=== PATIENT | male | born 1945 | race Caucasian/White ===

== ENCOUNTER 2016-12-06 13:23 | Observation (INO) | payer MEDICARE, OTHER ==
[2016-12-06] VITALS (12 sets, daily range): BP systolic 101–122; BP diastolic 58–86; PULSE 66–70; RESP 16–24; O2SAT 93–98
[~2016-12-06] VITALS: Ht 185.4 cm; Wt 98.8 kg
--- NOTE | 2016-12-06 14:26 | ED.REPORT ---
HPI-Dyspnea / Wheezing Date of Service Dec 06, 2016 ED Provider: Nursing Notes Stated Complaint: SHORT OF BREATH Chief Complaint: Respiratory Distress Allergies: Coded Allergies: No Known Allergies (Unverified , 12/06/16) General Time Seen by MD: 14:26 Physical Exam Initial Vital Signs Vital Signs (First) Date Time Temp Pulse Resp B/P Pulse Ox O2 Delivery O2 Flow Rate FiO2 12/06/16 13:44 37.2 69 23 110/75 96 Room Air Discharge & Departure Referrals: Eric Griffin MD (PCP) Nilam Quintana MD Dec 06, 2016 14:26
--- NOTE | 2016-12-06 14:39 | DRSVH ---
PROCEDURE: X-RAY CHEST, TWO VIEWS ([id number]) INDICATIONS: dyspnea TECHNIQUE: 2 views of the chest were acquired. COMPARISON: [facility], CHEST 2 VIEW, 07/12/2015, 11:51. FINDINGS: Surgical changes and devices: None. Lungs and pleura: No pleural effusions or pneumothorax. Lungs are abnormal with chronic quite sever e fibrotic change in underlying chronic lung disease with also bullous emphysema at the left upper lo be in a pattern previously present, without evidence of superimposed pneumothorax. Mediastinum: Mediastinal contours are normal. Heart size is normal. Bones and chest wall: No suspicious bony abnormalities. Soft tissues appear unremarkable. IMPRESSION: Left upper lobe apical bullous lung disease superimposed on quite severe chronic lung dis ease and interstitial prominence. With reference to the comparison study from 07/12/15 little if any c hange is identified. There is no current suspicion for superimposed pneumothorax in addition to the bullous emphysema noted at the left upper lobe. Dictated by: Jordy Bustillo M.D. on 12/06/2016 at 14:35 Approved by: Jordy Bustillo M.D. on 12/06/2016 at 14:37
--- NOTE | 2016-12-06 15:08 | ED.REPORT ---
HPI-Dyspnea / Wheezing Date of Service Dec 06, 2016 ED Provider: Juan Jose Alcantar DO Nursing Notes Stated Complaint: SHORT OF BREATH Chief Complaint: Respiratory Distress Allergies: Coded Allergies: No Known Allergies (Unverified , 12/06/16) General Time Seen by MD: 14:50 Physical Exam Initial Vital Signs Vital Signs (First) Date Time Temp Pulse Resp B/P Pulse Ox O2 Delivery O2 Flow Rate FiO2 12/06/16 13:44 37.2 69 23 110/75 96 Room Air Discharge & Departure Referrals: Eric Griffin MD (PCP) Juan Jose Alcantar DO Dec 06, 2016 15:08
--- NOTE | 2016-12-06 15:24 | ED.REPORT ---
HPI-Dyspnea / Wheezing Date of Service Dec 06, 2016 ED Provider: Juan Jose Alcantar DO Mr. Chaudhary is a very pleasant 71-year-old male with a history of sarcoidosis, presents to the ED with dyspnea and left-sided rib pain. Patient noted that the pain started 3 days ago and it is localized to the left side, deep under his rib. Pain is described as sharp in nature worse with breathing. The pain came on suddenly and has worsened in the last few days. Patient denies any fall or trauma. Associated symptoms of increased cough, shortness of breath, and mucus production. Patient denies fevers chills, chest pain, dizziness, changes in urinary or bowel symptoms. Nursing Notes Stated Complaint: SHORT OF BREATH Chief Complaint: Respiratory Distress Allergies: Coded Allergies: No Known Allergies (Unverified , 12/06/16) Scheduled Aspirin Chew (Aspirin Chew) 81 Mg Chew 81 MG PO DAILY Atenolol (Atenolol) 50 Mg Tablet 50 MG PO Q2DAY Levofloxacin (Levaquin) 500 Mg Tablet 500 MG PO Q24H Prednisone (PredniSONE) 5 Mg Tab 5 MG PO DAILY Simvastatin (Simvastatin) 40 Mg Tablet 40 MG PO HS General Time Seen by MD: 15:00 Chief Complaint Shortness of breath Hx Obtained From: Patient Arrived By: Helicopter Sudden in Onset?: Yes Onset Occurred: 3 days ago Symptom Duration: Constant Radiation: : Does not radiate Severity: Current: Pain level 3 out of 10 Associated with: Reports: Cough, Denies: Fever Pertinent Negative: Pt denies other symptoms Risk Factors PERC Rule Age 50 or over, Recent trauma or surgery Past Medical History Past Medical History Sarcoidosis Pseudomonas pneumonia Past Surgical History Umbilical hernia 5 weeks ago Skin cancer removal Review of Systems Basic Review of Systems Eyes: Vision NL, No discharge : No dysuria, No frequency Hematologic: No bleeding, No bruising Neurologic: NL mental status, No weakness, No numbness Psychiatric: Normal thought content Constitutional: Denies: Chills, Fever Respiratory: Reports: Pleuritic pain, Prod cough, clear, Shortness of breath, Wheezing Cardiovascular: Denies: Chest pain Complete sys rev & neg: except as marked. Physical Exam Initial Vital Signs Vital Signs (First) Date Time Temp Pulse Resp B/P Pulse Ox O2 Delivery O2 Flow Rate FiO2 12/06/16 13:44 37.2 69 23 110/75 96 Room Air 12/06/16 17:51 2 Head / Eyes: Atraumatic, Normocephalic, PERRL ENT: Mucous membranes moist, Conjunctiva normal, No scleral icterus Lymphatic: No lymphadenopathy Extremities: Vascular intact, Neuro intact, No swelling, No tenderness Skin: Warm, Dry, No cyanosis Neurologic: Alert, Oriented, Nonfocal Psychiatric: Mood/affect normal, Behavior normal, Normal thought content Respiratory / Chest: No crepitus Wheezing / Retractions: Positive: Wheezing inspiratory (wheezes were heard in all lung reagan anterior and posteriorly.) Abdomen: Soft, No guarding, No rebound, BS normoactive, No distention, No palpable mass, No pulsatile mass Tenderness/Guarding/Rebound: Positive: Tender LUQ... (Mild) Interpretation & Diagnostics Lab Results Interpretation Result Diagram: 12/07/16 04512/07/16 0450 Test 12/06/16 15:48 12/06/16 16:20 12/06/16 17:43 Urine Color Yellow (YELLOW) Urine Appearance Clear (CLEAR,HAZY) Urine pH 7.0 (5.0-8.0) Urine Specific [place] 1.010 (1.003-1.035) Urine Protein Negativemg/dL (NEG,TRACE) Urine Glucose (UA) Negativemg/dL (NEGATIVE) Urine Ketones Negativemg/dL (NEGATIVE) Urine Occult Blood Negative (NEGATIVE) Urine Nitrite Negative (NEGATIVE) Urine Bilirubin Negative (NEGATIVE) Urine Urobilinogen Normalmg/dL (NORMAL) Urine Leukocyte Esterase Negative (NEGATIVE) Urine RBC 0-2/hpf (0-2) Urine WBC 0-5/hpf (0-5) Urine Epithelial Cells Few/hpf (NONE-MOD) Urine Crystals None seen (NONE SEEN) Urine Bacteria Few/hpf (NONE-FEW) Urine Hyaline Casts None/lpf (NONE) Urine Granular Casts None seen (NONE SEEN) Urine Waxy Casts None seen (NONE SEEN) Urine Red Blood Cell Casts None seen (NONE SEEN) Urine White Blood Cell Casts None seen (NONE SEEN) Urine Mucus None seen (None Seen) Urine Trichomonas None seen (NONE SEEN) Urine Yeast None (NONE SEEN) Urinalysis Comment None Urine Culture Reflexed Not indicated D-Dimer 0.90mg/L FEU (<0.50) Pro-B-Type Natriuretic Peptide 112.7pg/mL (0-376) Hold Kaur Top Tube Received (Received) Hold Urine Received (Received) ECG Interpretation ECG Interpretation: Sinus rhythm at a rate of 68 bpm Atrial premature complex Left bundle branch block Time: 13:48 X-Ray Chest Interpretation Chest Xray Interpretation: IMPRESSION: 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 With reference to the comparison study from 07/12/15 little if any change is identified. There is no current suspicion for superimposed pneumothorax in addition to the bullous emphysema noted at the left upper lobe. View: AP & lat Interpretation / Wet Read by: Interpret - Radiologist Reviewed Previous Films: No change Re-Eval/Medical Decision Med Decision/Clinical Course Jet is a 71-year-old male with a history of sarcoidosis. He presents with left upper quadrant pain worse with inspiration. He has had increased cough, shortness of breath, and mucus production. Patient was transferred here due to concern of pneumothorax with a 30% collapsed lung, left upper lobe. On physical exam, I was able to appreciate wheezing and breath sounds in all lung reagan anteriorly and posteriorly. Chest x-ray showed no pneumothorax superimposed on his existing emphysema and lung disease. Patient is over the age of 50 with a recent surgical history. Labs revealed an elevated d-dimer. I ordered a chest CT to rule out pulmonary embolism. Patient has a elevated pro calcitonin with a left shift, without an elevated white blood cell count. With a history of recurrent Pseudomonas pneumonia we'll treat him with Levaquin. Patient was also oxygenating at 92% falling at rest. Discharge & Departure Impression: Primary Impression: Pneumonia Pneumonia type: due to unspecified organism Laterality: left Lung location : lower lobe of lung Qualified Code: J18.1 - Lobar pneumonia, unspecified organism Additional Impression: Sarcoidosis of lung Disposition: ADMITTED TO HOSPITAL Discharge Condition All VS Reviewed: Yes Condition: Stable Additional Instructions: Today we did a thorough workup and determined that your deep left-sided pain is not due to pneumothorax or pulmonary embolism. However today labs do show that you have an elevated pro-calcitonin which is sign of bacterial infection. With your history of pseudomonas we would like to put you on Levaquin. Your oxygen is dropping while laying in bed we would like to hold you overnight for observation. Referrals: Eric Griffin MD (PCP) Attending Statement I saw and evaluated this pt with Dr. Briceño and agree with the documentation above Leonila Briceño DO Dec 06, 2016 15:24 AndJuan Jose pichardo DO Dec 09, 2016 21:16 Estimat Glomerular Filtration Rate 0mL/min (>59) Glucose Level 108mg/dL (60-99) Calcium Level 9.3mg/dL (8.5-10.1) Total Bilirubin 0.8mg/dL (0.0-1.2) Aspartate Amino Transf (AST/SGOT) 24U/L (0-50) Alanine Aminotransferase (ALT/SGPT) 19U/L (0-44) Alkaline Phosphatase 67U/L (25-160) Troponin T < 0.010ug/L (0.0-0.011) Pro-B-Type Natriuretic Peptide 112.7pg/mL (0-376) Total Protein 6.9g/dL (6.4-8.4) Albumin 3.8g/dL (3.4-5.0) Procalcitonin 0.12ng/mL (0.00-0.08) Hold Kaur Top Tube Received (Received) Hold Urine Received (Received) ECG Interpretation ECG Interpretation: Sinus rhythm at a rate of 68 bpm Atrial premature complex Left bundle branch block Time: 13:48 X-Ray Chest Interpretation Chest Xray Interpretation: IMPRESSION: 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 With reference to the comparison study from 07/12/15 little if any change is identified. There is no current suspicion for superimposed pneumothorax in addition to the bullous emphysema noted at the left upper lobe. View: AP & lat Interpretation / Wet Read by: Interpret - Radiologist Reviewed Previous Films: No change Re-Eval/Medical Decision Med Decision/Clinical Course Jet is a 71-year-old male with a history of sarcoidosis. He presents with left upper quadrant pain worse with inspiration. He has had increased cough, shortness of breath, and mucus production. Patient was transferred here due to concern of pneumothorax with a 30% collapsed lung, left upper lobe. On physical exam, I was able to appreciate wheezing and breath sounds in all lung reagan anteriorly and posteriorly. Chest x-ray showed no pneumothorax superimposed on his existing emphysema and lung disease. Patient is over the age of 51 with a recent surgical history. Labs revealed an elevated d-dimer. I ordered a chest CT to rule out pulmonary embolism. Patient has a elevated pro calcitonin with a left shift, without an elevated white blood cell count. With a history of recurrent Pseudomonas pneumonia we'll treat him with Levaquin. Patient was also oxygenating at 92% falling at rest. Discharge & Departure Impression: Primary Impression: Pneumonia Pneumonia type: due to unspecified organism Laterality: left Lung location : lower lobe of lung Qualified Code: J18.1 - Lobar pneumonia, unspecified organism Additional Impression: Sarcoidosis of lung Disposition: ADMITTED TO HOSPITAL Discharge Condition All VS Reviewed: Yes Condition: Stable Additional Instructions: Today we did a thorough workup and determined that your deep left-sided pain is not due to pneumothorax or pulmonary embolism. However today labs do show that you have an elevated pro-calcitonin which is sign of bacterial infection. With your history of pseudomonas we would like to put you on Levaquin. Your oxygen is dropping while laying in bed we would like to hold you overnight for observation. Referrals: Eric Griffin MD (PCP) Leonila Briceño DO Dec 06, 2016 15:24
[2016-12-06 16:32] LABS: BASOPHILS % (AUTO) 0.1 % (0-3); EOSINOPHILS % (AUTO) 1.5 % (0-5); Mean Corpuscular Hemoglobin 31.2 pg (27.0-35.0); Mean Corpuscular Volume 92.2 fL (81-100); NEUTROPHILS % (AUTO) 82.5 % (40-74); Platelet Count 184 bil/L (150-400)
[2016-12-06 16:47] LABS: APPEARANCE,URINE CLEAR (CLEAR,HAZY); COLOR,URINE YELLOW (YELLOW); OCCULT BLOOD,URINE NEGATIVE (NEGATIVE); UROBILINOGEN,URINE NORMAL (NORMAL)
[2016-12-06 17:05] LABS: TROPONIN T < 0.010 ug/L (0.0-0.011)
[2016-12-06] MEDS ORDERED: HYDROmorphone 1 mg/mL Inj IVPUSH ONE (17:20)
--- NOTE | 2016-12-06 19:27 | DRSVH ---
PROCEDURE: CT ANGIO CHEST PULMONARY EMBOLISM ([id number]) INDICATIONS: shortness of breath TECHNIQUE: After the administration of intravenous contrast, 2 mm thick sections acquired from the pulmonary api salena to the posterior costophrenic angles. 3-dimensional maximum intensity projection (MIP) coronal a nd sagittal reformats were then acquired through the thorax. For radiation dose reduction, the follo wing was used: automated exposure control, adjustment of mA and/or kV according to patient size. COMPARISON: [facility], CT, CT LEMUS, 09/22/2014, 14:10. [facility], CT, THORAX WITH CONTRAST, 07/23/2012, 12:34. FINDINGS: Image quality: Excellent. Pulmonary arteries: Pulmonary arteries are normal in size, and demonstrate no intraluminal filling d efects to suggest central pulmonary embolism. Lungs and pleura: Significant emphysematous change is with large bulla particularly in the left apex are present. There are areas of patchy and nodular consolidative opacity identified within the apices , which are unchanged. In addition, patchy areas of opacity are also noted within the bases, also unc hanged. Areas of mild bibasilar honeycombing are also present. Mediastinum: Heart size is normal, without pericardial effusion. No mediastinal or hilar adenopathy . The ascendnig thoracic aorta measures 43 mm, unchanged. Esophagus is normal in caliber, without hia andres hernia. Bones and chest wall: No suspicious bony lesions. Ribs and thoracic spine appear intact throughout. Thyroid gland is unremarkable. No axillary or supraclavicular adenopathy. Mid thoracic compressio n deformity is unchanged. Abdomen: Partially visualized renal cysts are noted. Otherwise, visualized upper abdominal solid org ans appear normal in the early arterial phase of enhancement. IMPRESSION: 1. No visualized pulmonary embolism. 2. Multiple areas of nodular, patchy consolidative opacities identified within the lungs, unchanged c ompared to prior exam. There is a likely reflective of areas of scarring. Prominent emphysematous yash nges are also noted. 3. Unchanged a ascending thoracic aortic aneurysmal dilation. Dictated by: Tyesha Garcia M.D. on 12/06/2016 at 19:17 Approved by: Tyesha Garcia M.D. on 12/06/2016 at 19:25
[2016-12-06] MEDS ORDERED: Alum-Mag Hydrox-Simeth 30 mL Suspension PO PRN (21:35)
[2016-12-06] MEDS ORDERED: Polyethylene Glycol (PEG) 17 Gm Powder PO PRN (21:35)
[2016-12-06] MEDS ORDERED: Ondansetron 2 mg/mL 2 mL Inj IVPUSH PRN (21:35)
[2016-12-06] MEDS ORDERED: levoFLOXacin 500 mg Tablet PO SCH (21:38)
[2016-12-06] MEDS ORDERED: ATEN50TA PO (22:24)
[2016-12-06] MEDS ORDERED: PRD5T PO (22:24)
[2016-12-06] MEDS ORDERED: SIMV40TA5 PO (22:24)
--- NOTE | 2016-12-06 22:30 | PCM.HPMED ---
Subjective Date of Service Dec 06, 2016 Primary Provider: Admitting Physician: Becky Solomon DO Primary Care Physician: Eric Griffin MD Attending Physician: Becky Solomon DO Chief Complaint: Dyspnea, Cough History of Present Illness: Patient is a 71 y/o male with history of Pulmonary Sarcoidosis, HTN, hyperlipidemia, and pseudomonas pneumonia who presents after three days of sharp left sided pleuritic pain that is worse with deep breaths. Patient states this pain started gradually and got worse today. Patient reports increased cough from his baseline with associated yellow sputum. Denies any fever/chills, SLATER, CP, ABD pain, N/V/D, or urinary symptoms. He was seen by his PCP today on [place] who did a CXR. PCP was concerned for possible pneumothorax due to left sided lung markings on imaging. CXR was sent to and they too were concerned for pneumothorax, to which the patient was sent here. Patient has had pulmonary sarcoidosis for roughly 10 years and is currently stage 4. He is currently on Prednisone 5mg PO daily. In the ED, CXR was performed showing left apical blebs and compared to a study from 07/12/15 which showed no significant changes and r/o pneumothorax. Patient placed on 2L NC O2 and given 1mg Dilaudid. Review of Systems: ROS reviewed and otherwise negative unless noted above. Allergies Coded Allergies: No Known Allergies (Unverified , 12/06/16) Home Medications Atenolol 50mg tablet BID Prednisone 5mg tablet daily Simvistatin 40mg PO HS PMH HTN Hyperlipidemia Sarcoidosis - Stage 4 H/o Pseudomonas Pneumonia Facial Skin Cancer of unknown type Surgical History Umbilical Hernia 5 weeks ago w/o complications Skin Cancer removal Family History CAD, HTN in Father HTN in Mother Social History Hx Alcohol Use: No Hx Substance Use: No Smoking Status: Never Smoker Living Arrangement: with Family Exam Vital Signs Vital Sign - Last Date Time Temp Pulse Resp B/P Pulse Ox O2 Delivery O2 Flow Rate FiO2 12/06/16 22:00 36.5 66 20 119/76 98 Nasal Cannula 2.00 Exam Constitutional: Awake, Alert and oriented x4, no acute distress Head: Normocephalic and Atraumatic Eyes: Pupils equal round and reactive to light, no scleral icterus, EOMI Mouth: moist mucous membranes, no posterior oropharynx erythema Heart: regular rate and rhythm. no peripheral edema, no peripheral edema Lungs: Diffuse wheeze throughout all lung reagan, Diminshed breath sounds in the left apex, no rales or rhonchi ABD: soft, nontender, bowel sounds present throughout, well healed umbilical surgical scar Musculoskeletal: moves all four extremities appropriately Skin: warm, dry, no rash Neuro: CN II-XII intact, no focal deficits. Psych: appropriate mood and affect. Lab and Diagnostics Labs Item Value Date Time Red Blood Count 4.74 mil/mm3 12/06/16 1620 Mean Corpuscular Volume 92.2 fL 12/06/16 1620 Mean Corpuscular Hemoglobin 31.2 pg 12/06/16 1620 Mean Corpuscular Hemoglobin Concent 33.9 % 12/06/16 1620 Red Cell Distribution Width 13.4 % 12/06/16 1620 Neutrophils (%) (Auto) 82.5 % H 12/06/16 1620 Lymphocytes (%) (Auto) 3.8 % L 12/06/16 1620 Eosinophils (%) (Auto) 1.5 % 12/06/16 1620 Monocytes (%) (Auto) 12.0 % 12/06/16 1620 Basophils (%) (Auto) 0.1 % 12/06/16 1620 Estimat Glomerular Filtration Rate 0 mL/min 12/06/16 1620 Calcium Level 9.3 mg/dL 12/06/16 1620 Total Bilirubin 0.8 mg/dL 12/06/16 1620 Aspartate Amino Transf (AST/SGOT) 24 U/L 12/06/16 1620 Alanine Aminotransferase (ALT/SGPT) 19 U/L 12/06/16 1620 Alkaline Phosphatase 67 U/L 12/06/16 1620 Troponin T < 0.010 ug/L 12/06/16 1620 Pro-B-Type Natriuretic Peptide 112.7 pg/mL 12/06/16 1620 Total Protein 6.9 g/dL 12/06/16 1620 Albumin 3.8 g/dL 12/06/16 1620 Procalcitonin 0.12 ng/mL H 12/06/16 1620 D-Dimer 0.90 mg/L FEU H 12/06/16 1620 Result Diagram: 12/06/16 1620 12/06/16 1620 X-Rays, CTs and MRIs PROCEDURE: X-RAY CHEST, TWO VIEWS IMPRESSION: 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 With reference to the comparison study from 07/12/15 little if any change is identified. There is no current suspicion for superimposed pneumothorax in addition to the bullous emphysema noted at the left upper lobe. Dictated by: Jordy Bustillo M.D. on 12/06/2016 at 14:35 PROCEDURE: CT ANGIO CHEST PULMONARY EMBOLISM IMPRESSION: 1. No visualized pulmonary embolism. 2. Multiple areas of nodular, patchy consolidative opacities identified within the lungs, unchanged compared to prior exam. There is a likely reflective of areas of scarring. Prominent emphysematous changes are also noted. 3. Unchanged a ascending thoracic aortic aneurysmal dilation. Dictated by: Tyesha Garcia M.D. on 12/06/2016 at 19:17 12-lead ECG Sinus Rhythm HR 68 Assessment & Plan Patient is a 71 y/o male with history of Pulmonary Sarcoidosis, HTN, hyperlipidemia, and pseudomonas pneumonia who presents after three days of sharp left sided pleuritic pain that is worse with deep breaths and productive cough. - Acute Community Acquired Pneumonia, POA, Active, Stable - Patient with h/o Pulmonary Sarcoidosis and at risk for communicable lung infections presents with increased productive cough, elevated procalcitonin, and CT evidence of pneumonia. - Start Levaquin PO x5 days. - Monitor oxygen levels - AM CBC, CMP, and procalcitonin - Acute Elevated D-dimer, POA, Active, Stable - Patient's D-dimer 0.9 on admission, negative PE study and no evidence of DVT, likely related to chronic inflammatory state of Sarcoidosis - Monitor clinically - History of Sarcoidosis, Chronic, POA, Stable - Continue home dose prednisone -History of HTN, Chronic, Stable - Continue home dose of Atenolol -History of Hyperlipidemia, Chronic, Stable - Continue home dose statin Patient is limited interventions, CPR only, no intubation Due to patient's history of Sarcoidosis and risk for pneumothorax, patient is admitted under observation status with an expected length of stay less than 2 midnights. Pain Evaluation: Adequate Pain Control GI Prophylaxis: H2 christy VTE Prophylaxis Indicated: Meets Criteria for Anticoag Therapy VTE Prophylaxis: Sub-Q Heparin (Unfractionated) Resuscitation Status: Limited Interventions Limited Interventions: Compressions Attending Statement The patient was seen and examined together with house staff on 12/06/2016 and I agree with the history, exam and plan as outlined in the note above. Aidan Duong DO Dec 06, 2016 22:30 Becky Solomon DO Dec 07, 2016 04:21
[2016-12-06] MEDS ORDERED: Albuterol-Ipratropium 3 mL Inhalation Solution NEB PRN (22:35)
--- NOTE | 2016-12-06 23:56 | NUR ---
Admit Note Pt. arrived on the floor at 2150. A&Ox3. Pt. on 2 liters of oxygen via nc upon arrival from ED. Pt's peripheral IV intact and patent. Will continue to monitor.
[2016-12-07] MEDS: Heparin 5,000 Unit/mL Inj SUBQ SCH ×2 (00:52→09:17)
[2016-12-07 01:20] VITALS: BP 96/59; PULSE 71; RESP 20; O2SAT 97
[2016-12-07 05:37] LABS: BASOPHILS % (AUTO) 0.1 % (0-3); MONOCYTES % (AUTO) 10.9 % (4-12); Mean Corpuscular Hemoglobin 31.4 pg (27.0-35.0); Mean Corpuscular Volume 93.8 fL (81-100); NEUTROPHILS % (AUTO) 79.8 % (40-74); Platelet Count 161 bil/L (150-400)
[2016-12-07 06:10] VITALS: BP 111/73; PULSE 72; RESP 20; O2SAT 98
[2016-12-07] MEDS ORDERED: predniSONE 5 mg Tablet PO SCH (08:30)
[2016-12-07 12:30] VITALS: BP 107/70; PULSE 74; RESP 20; O2SAT 93
--- NOTE | 2016-12-07 13:23 | PCM.PNMED ---
Subjective Date of Service Dec 07, 2016 Subjective Pt denies any significant SOB. Exam Vital Signs Vital Sign - Last Date Time Temp Pulse Resp B/P Pulse Ox O2 Delivery O2 Flow Rate FiO2 12/07/16 12:30 36.7 74 20 107/70 93 Nasal Cannula 12/07/16 06:10 2.00 Intake and Output 12/06/16 12/06/16 12/07/16 Cumulative From/Thru 15:00 23:00 07:00 12/06/16 13:44 - 12/07/16 06:45 Intake Total 700 ml 700 ml Output Total 400 ml 400 ml Balance 300 ml 300 ml Intake Oral 700 ml 700 ml Output Urine Total 400 ml 400 ml # Voids 1 1 # Bowel Movements 0 0 Exam Constitutional: Awake, Alert and oriented x4, no acute distress Head: Normocephalic and Atraumatic Eyes: Pupils equal round and reactive to light, no scleral icterus, EOMI Mouth: moist mucous membranes, no posterior oropharynx erythema Heart: regular rate and rhythm. no peripheral edema, no peripheral edema Lungs: Diffuse wheeze throughout all lung reagan, Diminished breath sounds in the left apex, no rales or rhonchi ABD: soft, nontender, bowel sounds present throughout, well healed umbilical surgical scar Musculoskeletal: moves all four extremities appropriately Skin: warm, dry, no rash Neuro: CN II-XII intact, no focal deficits. Psych: appropriate mood and affect. 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 With reference to the comparison study from 07/12/15 little if any change is identified. There is no current suspicion for superimposed pneumothorax in addition to the bullous emphysema noted at the left upper lobe. Dictated by: Jordy Bustillo M.D. on 12/06/2016 at 14:35 PROCEDURE: CT ANGIO CHEST PULMONARY EMBOLISM IMPRESSION: 1. No visualized pulmonary embolism. 2. Multiple areas of nodular, patchy consolidative opacities identified within the lungs, unchanged compared to prior exam. There is a likely reflective of areas of scarring. Prominent emphysematous changes are also noted. 3. Unchanged a ascending thoracic aortic aneurysmal dilation. Dictated by: Tyesha Garcia M.D. on 12/06/2016 at 19:17 12-lead ECG Sinus Rhythm HR 68 Assessment & Plan Patient is a 71 y/o male with history of Pulmonary Sarcoidosis, HTN, hyperlipidemia, and pseudomonas pneumonia who presents after three days of sharp left sided pleuritic pain that is worse with deep breaths and productive cough. Initially sent in for suspicion of Pneumothorax on CXR per PCP. Our Repeat CXR and CTA Chest show KIANA Emphysema, low suspicion for PTX. Acute Community Acquired Pneumonia, POA, Active - Patient with h/o Pulmonary Sarcoidosis and at risk for communicable lung infections presents with increased productive cough, elevated procalcitonin, and CT evidence of pneumonia. - Afebrile, No leukocytosis. - Continue Levaquin PO x7 days to end December 12. - Monitor oxygen levels. - procalcitonin was elevated. KIANA emphysematous change, chronic, stable. Initially sent in for suspicion of Pneumothorax on CXR per PCP. Our Repeat CXR and CTA Chest show KIANA Emphysema, low suspicion for PTX. Discussed case with On-Call radiologist who reviewed images and agreed no significant evidence to suggest Pneumothorax. - Will need to get repeat Chest X-Ray as outpatient to compare to make sure abnormal finding are stable. Chronic COPD- poa, active. Not likely acute exacerbation. Tx for PNA above. CTA- Significant emphysematous change is with large bulla particularly in the left apex are present Follow up with PCP in 1 week, consider pulmonary referral. Acute Elevated D-dimer, POA, Stable - Patient's D-dimer 0.9 on admission, negative PE study and no evidence of DVT, likely related to chronic inflammatory state of Sarcoidosis History of Sarcoidosis, Chronic, POA, Stable - Continue home dose prednisone History of HTN, Chronic, Stable - Continue home dose of Atenolol History of Hyperlipidemia, Chronic, Stable - Continue home dose statin Patient is limited interventions, CPR only, no intubation Dispo- discharge home. - Continue Levaquin for total 7 days to end December 12. - Continue home dose prednisone - Follow up with primary doctor in 1 week, consider pulmonary referral. - Will need to get repeat Chest X-Ray as outpatient to compare to make sure abnormal finding are stable. Blood Cultures were obtained, your doctor can request records as results will not be available for 2-3 days. GI Prophylaxis: H2 christy VTE Prophylaxis: Sub-Q Heparin (Unfractionated) VTE Mechanical Devices: Intermittant Pneumatic CD Resuscitation Status: Limited Interventions Limited Interventions: Compressions Eliceo Berumen MD Dec 07, 2016 13:23
--- NOTE | 2016-12-07 13:38 | PCM.DC.MED ---
Discharge Summary Date of Service Dec 07, 2016 Dates of Hospitalization Date of Hospital Admission Dec 06, 2016 at 21:26 Date of Discharge: Dec 07, 2016 Providers: Admitting Physician: Becky Solomon DO Primary Care Physician: Eric Griffin MD Attending Physician: Eliceo Berumen MD Diagnosis at Time of Discharge Diagnosis at Time of Discharge Acute Community Acquired Pneumonia, POA, Active KIANA emphysematous change, chronic, stable. Chronic COPD- poa, active. 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 With reference to the comparison study from 07/12/15 little if any change is identified. There is no current suspicion for superimposed pneumothorax in addition to the bullous emphysema noted at the left upper lobe. Dictated by: Jordy Bustillo M.D. on 12/06/2016 at 14:35 PROCEDURE: CT ANGIO CHEST PULMONARY EMBOLISM IMPRESSION: 1. No visualized pulmonary embolism. 2. Multiple areas of nodular, patchy consolidative opacities identified within the lungs, unchanged compared to prior exam. There is a likely reflective of areas of scarring. Prominent emphysematous changes are also noted. 3. Unchanged a ascending thoracic aortic aneurysmal dilation. Dictated by: Tyesha Garcia M.D. on 12/06/2016 at 19:17 ECG 12 Lead Sinus Rhythm HR 68 Brief History Per HPI on 12/06/[address] Duong Patient is a 71 y/o male with history of Pulmonary Sarcoidosis, HTN, hyperlipidemia, and pseudomonas pneumonia who presents after three days of sharp left sided pleuritic pain that is worse with deep breaths. Patient states this pain started gradually and got worse today. Patient reports increased cough from his baseline with associated yellow sputum. Denies any fever/chills, SLATER, CP, ABD pain, N/V/D, or urinary symptoms. He was seen by his PCP today on [place] who did a CXR. PCP was concerned for possible pneumothorax due to left sided lung markings on imaging. CXR was sent to and they too were concerned for pneumothorax, to which the patient was sent here. Patient has had pulmonary sarcoidosis for roughly 10 years and is currently stage 4. He is currently on Prednisone 5mg PO daily. In the ED, CXR was performed showing left apical blebs and compared to a study from 07/12/15 which showed no significant changes and r/o pneumothorax. Patient placed on 2L NC O2 and given 1mg Dilaudid. Hospital Course Patient is a 71 y/o male with history of Pulmonary Sarcoidosis, HTN, hyperlipidemia, and pseudomonas pneumonia who presents after three days of sharp left sided pleuritic pain that is worse with deep breaths and productive cough. Initially sent in for suspicion of Pneumothorax on CXR per PCP. Our Repeat CXR and CTA Chest show KIANA Emphysema, low suspicion for PTX. Acute Community Acquired Pneumonia, POA, Active - Patient with h/o Pulmonary Sarcoidosis and at risk for communicable lung infections presents with increased productive cough, elevated procalcitonin, and CT evidence of pneumonia. - Afebrile, No leukocytosis. - Continue Levaquin PO x7 days to end December 12. - Monitor oxygen levels. - procalcitonin was elevated. KIANA emphysematous change, chronic, stable. Initially sent in for suspicion of Pneumothorax on CXR per PCP. Our Repeat CXR and CTA Chest show KIANA Emphysema, low suspicion for PTX. Discussed case with On-Call radiologist who reviewed images and agreed no significant evidence to suggest Pneumothorax. - Will need to get repeat Chest X-Ray as outpatient to compare to make sure abnormal finding are stable. Chronic COPD- poa, active. Not likely acute exacerbation. Tx for PNA above. CTA- Significant emphysematous change is with large bulla particularly in the left apex are present Follow up with PCP in 1 week, consider pulmonary referral. Acute Elevated D-dimer, POA, Stable - Patient's D-dimer 0.9 on admission, negative PE study and no evidence of DVT, likely related to chronic inflammatory state of Sarcoidosis History of Sarcoidosis, Chronic, POA, Stable - Continue home dose prednisone History of HTN, Chronic, Stable - Continue home dose of Atenolol History of Hyperlipidemia, Chronic, Stable - Continue home dose statin Patient is limited interventions, CPR only, no intubation Dispo- discharge home. - Continue Levaquin for total 7 days to end December 12. - Continue home dose prednisone - Follow up with primary doctor in 1 week, consider pulmonary referral. - Will need to get repeat Chest X-Ray as outpatient to compare to make sure abnormal finding are stable. Blood Cultures were obtained, your doctor can request records as results will not be available for 2-3 days. Exam Vital Signs (Last) Date Time Temp Pulse Resp B/P Pulse Ox O2 Delivery O2 Flow Rate FiO2 12/07/16 12:30 36.7 74 20 107/70 93 Nasal Cannula 12/07/16 06:10 2.00 Test 12/06/16 15:48 12/06/16 16:20 12/06/16 17:43 12/07/16 04:50 Urine Color Yellow (YELLOW) Urine Appearance Clear (CLEAR,HAZY) Urine pH 7.0 (5.0-8.0) Urine Specific [place] 1.010 (1.003-1.035) Urine Protein Negativemg/dL (NEG,TRACE) Urine Glucose (UA) Negativemg/dL (NEGATIVE) Urine Ketones Negativemg/dL (NEGATIVE) Urine Occult Blood Negative (NEGATIVE) Urine Nitrite Negative (NEGATIVE) Urine Bilirubin Negative (NEGATIVE) Urine Urobilinogen Normalmg/dL (NORMAL) Urine Leukocyte Esterase Negative (NEGATIVE) Urine RBC 0-2/hpf (0-2) Urine WBC 0-5/hpf (0-5) Urine Epithelial Cells Few/hpf (NONE-MOD) Urine Crystals None seen (NONE SEEN) Urine Bacteria Few/hpf (NONE-FEW) Urine Hyaline Casts None/lpf (NONE) Urine Granular Casts None seen (NONE SEEN) Urine Waxy Casts None seen (NONE SEEN) Urine Red Blood Cell Casts None seen (NONE SEEN) Urine White Blood Cell Casts None seen (NONE SEEN) Urine Mucus None seen (None Seen) Urine Trichomonas None seen (NONE SEEN) Urine Yeast None (NONE SEEN) Urinalysis Comment None Urine Culture Reflexed Not indicated D-Dimer 0.90mg/L FEU (<0.50) Pro-B-Type Natriuretic Peptide 112.7pg/mL (0-376) Hold Kaur Top Tube Received (Received) Hold Urine Received (Received) White Blood Count 7.0th/mm3 (3.8-10.1) Red Blood Count 4.68mil/mm3 (4.40-5.80) Hemoglobin 14.7g/dL (13.8-17.2) Hematocrit 43.9% (41.0-50.0) Mean Corpuscular Volume 93.8fL (81-100) Mean Corpuscular Hemoglobin 31.4pg (27.0-35.0) Mean Corpuscular Hemoglobin Concent 33.5% (32.0-37.0) Red Cell Distribution Width 13.6% (12.3-15.4) Platelet Count 161bil/L (150-400) Neutrophils (%) (Auto) 79.8% (40-74) Lymphocytes (%) (Auto) 4.1% (14-46) Monocytes (%) (Auto) 10.9% (4-12) Eosinophils (%) (Auto) 5.0% (0-5) Basophils (%) (Auto) 0.1% (0-3) Sodium Level 136mEq/L (134-144) Potassium Level 5.1mEq/L (3.5-5.2) Chloride Level 96mEq/L (97-108) Carbon Dioxide Level 31mmol/L (18-29) Blood Urea Nitrogen 24mg/dL (8-27) Creatinine 1.30mg/dL (0.76-1.27) Estimat Glomerular Filtration Rate 58mL/min (>59) Glucose Level 89mg/dL (60-99) Calcium Level 9.0mg/dL (8.5-10.1) Total Bilirubin 0.7mg/dL (0.0-1.2) Aspartate Amino Transf (AST/SGOT) 22U/L (0-50) Alanine Aminotransferase (ALT/SGPT) 18U/L (0-44) Alkaline Phosphatase 68U/L (25-160) Total Protein 6.2g/dL (6.4-8.4) Albumin 3.7g/dL (3.4-5.0) Procalcitonin 0.17ng/mL (0.00-0.08) Test 12/07/16 07:55 Lactic Acid Level 0.8mmol/L (0.4-2.0) Troponin T 0.010ug/L (0.0-0.011) Discharge Medications Discharge Medications Atenolol (Atenolol) 50 Mg Tablet 50 MG PO Q2DAY (Reported) Prednisone (PredniSONE) 5 Mg Tab 5 MG PO DAILY (Reported) Simvastatin (Simvastatin) 40 Mg Tablet 40 MG PO HS (Reported) Additional med instructions - Continue Levaquin for total 7 days to end December 12. - Continue home dose prednisone Followup Plan Disposition: Home Follow-up plan - Follow up with primary doctor in 1 week, consider pulmonary referral. Discharge Diet: No restrictions Discharge Activity: No restrictions Patient Instructions - Will need to get repeat Chest X-Ray as outpatient to compare to make sure abnormal finding are stable. Blood Cultures were obtained, your doctor can request records as results will not be available for 2-3 days. Time spent Greater than 30 minutes was spent in preparation of discharge with greater than 50% of that time dedicated to patient counseling and coordination of care. copies to: Eric Griffin MD, Navdeep MD Dec 07, 2016 13:38
[2016-12-07] MEDS ORDERED: LEVO500T20 PO (13:39)
[2016-12-07] MEDS ORDERED: ASPI81TA3 PO (13:39)
--- NOTE | 2016-12-07 13:40 | PCM.DIMED ---
Discharge Instructions Date of Service Dec 07, 2016 Dates of Hospitalization Dec 06, 2016 at 21:26 Discharge Diagnosis Discharge Diagnosis Acute Community Acquired Pneumonia, POA, Active KIANA emphysematous change, chronic, stable. Chronic COPD- poa, active. Sarcoidosis, Chronic, POA, Stable HTN, Chronic, Stable Hyperlipidemia, Chronic, Stable Medication Instructions Additional med instructions - Continue Levaquin for total 7 days to end December 12. - Continue home dose prednisone Diet Discharge Diet: No restrictions Activity Discharge Activity: No restrictions Patient Instructions Patient Instructions - Will need to get repeat Chest X-Ray as outpatient to compare to make sure abnormal finding are stable. Blood Cultures were obtained, your doctor can request records as results will not be available for 2-3 days. Follow-up plan - Follow up with primary doctor in 1 week, consider pulmonary referral. Eliceo Berumen MD Dec 07, 2016 13:40
--- NOTE | 2016-12-07 14:36 | NUR ---
DISCHARGE Patient discharged at 1430, to drive him home, priority loading given. Medications and new RX reviewed and patient verbalized understanding. Care notes on pneumonia and Levaquin provided, IV catheter removed intact, personal belongings returned and accounted for. Patient denies pain, shortness of breath, and nausea. Follow up instructions provided.
--- NOTE | 2016-12-07 15:43 | NUR ---
Social Work: Brief Note / Discharge EMR reviewed. Patient is a 71 year old male who was admitted on 12/06/16 for pneumonia per H&P. Patient's insurance is Medicare and [facility]. Patient's PCP is Eric Griffin MD. Patient resides with his Najma on [address]. Patient has been deemed medically stable for discharge today per MD. SW was unable to complete initial assessment prior to patient being discharged from hospital. Transportation was provided by patient's . Patient had no needs at time of discharge. NICO Soni
--- NOTE | 2016-12-07 17:46 | NUR ---
Case Management: Attempted to provide TRAN at 1705 but unable. Patient has been discharged. Namrata Bull RN
== END 2016-12-07 14:21 | disposition home or self-care (01) ==
LOC: EDUNIT# 13:23 → EDBD 13:23 → SED 13:23 → INTOOBSV 21:26 → OSC 21:26
PROVIDERS: ADMIT Internal Medicine; ATTEND Internal Medicine
DX: J18.1 Lobar pneumonia, unspecified organism (principal); J43.8 Other emphysema; J44.9 Chronic obstructive pulmonary disease, unspecified; R79.89 Other specified abnormal findings of blood chemistry; D86.9 Sarcoidosis, unspecified; I10 Essential (primary) hypertension; E78.5 Hyperlipidemia, unspecified; Z79.82 Long term (current) use of aspirin; Z85.828 Personal history of other malignant neoplasm of skin
CPT/HCPCS: 36415; 71020; 71275; 80053; 81000; 83605; 83880; 84145; 84484; 85025; 85378; 87040; 93005; 96372; 96374; 96375; 99285; G0378; J1170; J1644; J2270; J7512; Q9967